=== PATIENT | female | born 1995 | race Caucasian/White ===

== ENCOUNTER 2017-09-06 08:18 | Emergency (ER) | payer OTHER ==
[~2017-09-06] VITALS: Ht 165.1 cm; Wt 99.8 kg
[~2017-09-06 08:18] MED LIST: AMOX250C31; [UNRECOGNIZED DRUG - CODE]
--- NOTE | 2017-09-06 08:21 | NUR ---
PATIENT AMBULATED TO BED 8.
[2017-09-06 08:27] VITALS: BP 117/72
--- NOTE | 2017-09-06 08:30 | NUR ---
21/f bib self with c/o left ankle pain swelling discoloration s/p injury while playing [employer] x yesterday +2 pedal pulse <3 sec cap refill. denies loc.[id number]; LUNGS CLEAR BL. PATIENT STATES PAIN OF 5/10 AT THIS TIME. PATIENT POSITIONED FOR COMFORT; ELEVATED LLL, BEDRAILS UP X2; BED DOWN. ER MD MADE AWARE OF PT STATUS.
--- NOTE | 2017-09-06 08:38 | NUR ---
X RAY AT BEDSIDE.
--- NOTE | 2017-09-06 08:38 | NUR ---
Patient being evaluated by DR DUTTON at bedside.
--- NOTE | 2017-09-06 09:24 | NUR ---
RANJEET SIMS & THERESA TEACHING DONE BY DON MADISON
[2017-09-06 10:02] VITALS: BP 105/66
--- NOTE | 2017-09-06 10:02 | NUR ---
Patient discharged with v/s stable. Written and verbal after care instructions given and explained. Patient alert, oriented and verbalized understanding of instructions. Ambulatory with CRUTCHES. All questions addressed prior to discharge. ID band removed. Patient advised to follow up with PMD. Rx of IBUPROFEN given. Patient educated on indication of medication including possible reaction and side effects. Opportunity to ask questions provided and answered.
== END 2017-09-06 10:02 | disposition home or self-care (01) ==
LOC: MED 08:18
DX: S93.402A Sprain of unspecified ligament of left ankle, initial encounter (principal); X50.0XXA Overexertion from strenuous movement or load, initial encounter; Y93.89 Activity, other specified; Y99.8 Other external cause status; Y92.89 Other specified places as the place of occurrence of the external cause
CPT/HCPCS: 73610; 99284

== ENCOUNTER 2020-10-26 08:25 | Emergency (ER) | payer OTHER ==
[~2020-10-26] VITALS: Ht 165.1 cm; Wt 99.8 kg
[2020-10-26 08:39] VITALS: BP 135/79
[2020-10-26] MEDS ORDERED: ACETAMINOPHEN 325 MG TAB PO ONE (08:55)
--- NOTE | 2020-10-26 09:00 | NUR ---
24/F with left fifth digit pain since yesterday with numbness and weakness. Patient states that [place] and landed on her left hand. Patient rates the pain 5/10, describes it as pressure-like pain, denies taking medication for pain. Patient denies any other injury, head trauma, loss of consciousness, chest pain, shortness of breath, nausea, or vomiting.
[2020-10-26] MEDS ORDERED: ACET-2619 PO (09:48)
[2020-10-26 10:20] VITALS: BP 135/79
--- NOTE | 2020-10-26 10:20 | NUR ---
Patient discharged with v/s stable. Written and verbal after care instructions given about finger sprain and explained. Patient alert, oriented and verbalized understanding of instructions. Ambulatory with steady gait. All questions addressed prior to discharge. ID band removed. Patient advised to follow up with PMD. Rx of Tylenol given. Patient educated on indication of medication including possible reaction and side effects. Opportunity to ask questions provided and answered.
== END 2020-10-26 10:20 | disposition home or self-care (01) ==
LOC: MED 08:25
DX: S63.617A Unspecified sprain of left little finger, initial encounter (principal); W17.89XA Other fall from one level to another, initial encounter; Y93.89 Activity, other specified; Y92.89 Other specified places as the place of occurrence of the external cause; Y99.8 Other external cause status
CPT/HCPCS: 73130; 99283